=== PATIENT | male | born 1965 | race Asian ===

== ENCOUNTER 2022-02-10 14:31 | Emergency (ER) | payer OTHER ==
[~2022-02-10] VITALS: Ht 170.2 cm; Wt 72.3 kg
[2022-02-10 14:53] VITALS: BP 157/95
[2022-02-10] MEDS ORDERED: oxyCODONE IR 5mg (immed. release) tablet PO ONE (15:55)
[2022-02-10 16:18] LABS: BASOPHILS # (AUTO) 0.1 X10'3 (0-0.2); EOSINOPHILS # (AUTO) 0.1 X10'3 (0-0.9); HEMATOCRIT 46.1 % (42.0-52.0); HEMOGLOBIN 15.7 g/dl (14.0-17.9); LYMPHOCYTES # (AUTO) 2.4 X10'3 (1.1-4.8); LYMPHOCYTES % (AUTO) 37.8 % (21-51); MEAN CORPUSCULAR HEMOGLOBIN 30.6 PG (27.0-31.0); MEAN PLATELET VOLUME 8.3 FL (7.4-10.4); MONOCYTES # (AUTO) 0.5 X10'3 (0-0.9); MONOCYTES % (AUTO) 7.7 % (2-12); NEUTROPHILS # (AUTO) 3.3 X10'3 (1.8-7.7); NEUTROPHILS % (AUTO) 51.5 % (42-75); PLATELET COUNT 264 X10'3 (140-440); RED BLOOD COUNT 5.13 X10'6 (4.70-6.10); RED CELL DISTRIBUTION WIDTH 15.2 % (11.5-14.5); WHITE BLOOD COUNT 6.4 X10'3 (4.5-11.0)
[2022-02-10] MEDS ORDERED: acetaminophen 325mg tablet PO ONE (16:40)
[2022-02-10] MEDS ORDERED: SULF1TAB49 PO (17:21)
[2022-02-10] MEDS ORDERED: CEPH500C2 PO (17:21)
== END 2022-02-10 18:58 | disposition home or self-care (01) ==
LOC: ER 14:32
DX: L08.9 Local infection of the skin and subcutaneous tissue, unspecified (principal); M79.644 Pain in right finger(s); E11.9 Type 2 diabetes mellitus without complications; Z79.2 Long term (current) use of antibiotics
CPT/HCPCS: 36415; 73130; 85025; 85651; 86140; 99284